=== PATIENT | female | born 1990 | race Two or more races ===

== ENCOUNTER 2023-05-21 20:07 | Emergency (ER) | payer OTHER ==
[~2023-05-21] VITALS: Ht 154.9 cm; Wt 74.5 kg
[2023-05-21 20:44] VITALS: PULSE 99; RESP 26; O2SAT 95
[2023-05-21] MEDS ORDERED: ALBUTEROL SULFATE 2.5 MG/0.5 ML NEB SOLUTION NEB ONE (20:45)
[2023-05-21] MEDS ORDERED: PredniSONE 20 MG TABLET PO ONE (20:45)
[2023-05-21] MEDS ORDERED: IPRATROPIUM BROMIDE 0.5 MG/2.5 ML NEB SOLUTION NEB ONE (20:45)
[2023-05-21 20:50] LABS: COVID AG,FIA SOURCE NASAL SWAB
[2023-05-21 21:13] LABS: SARS-COV2 (COVID) ANTIGEN,FIA Negative (Negative)
[2023-05-21 21:17] LABS: INFLUENZA TYPE A NEGATIVE FOR TYPE A (NEGATIVE); INFLUENZA TYPE B NEGATIVE FOR TYPE B (NEGATIVE)
[2023-05-21 21:56] VITALS: BP 115/60; PULSE 92; RESP 17; TEMP 98.3
[2023-05-21] MEDS ORDERED: PRED-554 PO (22:02)
[2023-05-21] MEDS ORDERED: ALBU18HF12 IH (22:02)
== END 2023-05-21 23:00 | disposition home or self-care (01) ==
LOC: EMS 20:08
DX: J45.909 Unspecified asthma, uncomplicated (principal); Z20.822 Contact with and (suspected) exposure to COVID-19
CPT/HCPCS: 99291; 94060; 71045; 87426; 87804; 93005; 94640; J7512; J7613

== ENCOUNTER 2023-11-10 14:58 | Emergency (ER) | payer OTHER ==
[~2023-11-10] VITALS: Ht 154.9 cm; Wt 74.5 kg
[~2023-11-10 14:58] MED LIST: ALBU18HF12 IH; PRED-554 PO
[2023-11-10 15:04] VITALS: BP 115/70; PULSE 80; RESP 16; TEMP 98.4
== END 2023-11-10 16:43 | disposition left against medical advice (07) ==
LOC: EMS 14:59
DX: Z53.21 Procedure and treatment not carried out due to patient leaving prior to being seen by health care provider (principal)